=== PATIENT | female | born 1955 | race Caucasian/White ===

== ENCOUNTER → 2016-09-21 | Day surgery (SDC) | payer BC ==
[~2016-09-21] MED LIST: ALLEGRA-D1 TAB 60/1 PO; ATORVASTATIN CA10 MG PO; CALCIUM500 MG PO; MULTI-DAY VITAM1 TAB PO; PREMPRO1 TAB DOB; SYNTHROID125 PO
--- NOTE | ~2016-09-21 | OR ---
Unit #: [id number] #: [id number] Patient: NIEVES GAITAN [id number] [address] [place], [place] [address] [id number] O MR#: [id number] NAME: NIEVES GAITAN ROOM: Date of Procedure: 09/21/2016 Admission Date: 09/21/2016 Surgeon: Albaro Gonzalez M.D. : 1955 Attending Physician: Albaro Gonzalez M.D. Primary Care Physician: Emmanuel Curtis Jr., M.D. OPERATIVE REPORT PRIMARY CARE PHYSICIAN Emmanuel Curtis M.D. PREOPERATIVE DIAGNOSIS Colorectal cancer screening in an average-risk patient. PROCEDURE PERFORMED Colonoscopy up to cecum with excellent preparation and good visualization. POSTOPERATIVE DIAGNOSES Completely normal examination up to cecum and terminal ileum. The quality of the prep was excellent. RECOMMENDATIONS Repeat colonoscopy in 10 years. SEDATION USED MAC. DESCRIPTION OF PROCEDURE Following detailed explanation of potential risks and complications of a colonoscopy, namely perforation, bleeding, and complication related to sedation, the patient was brought to GI lab and laid in the left lateral decubitus position. A digital rectal examination was performed, which was normal. Lubricated tip of the Olympus video colonoscope was inserted through the anus and advanced under direct vision. The scope was advanced past rectosigmoid into descending colon. No diverticula were seen in this area. The scope tip was then navigated all the way up to cecum with visualization of the ileocecal valve and the appendiceal orifice. Preparation was excellent with good visualization and photodocumentation was obtained. Last several inches of the terminal ileum were also visualized after intubation of the ileocecal valve and appeared normal. Successive segments of the colonic mucosa were examined upon withdrawal and appeared unremarkable. There being no polyps, mass lesions, AVMs, or diverticula. The patient did not have any hemorrhoids at the anal verge. The scope was then withdrawn and the patient returned to recovery area. She tolerated the procedure without any postprocedure complications. Dictated by... Albaro Gonzalez M.D. Unit #: [id number] #: [id number] Patient: NIEVES GAITAN JAMIL/trudi TD: 09/22/2016 01:26 JOB #: [id number] OPERATIVE REPORT Page 1 of 1 X Albaro Gonzalez MD PROCEDURE OPERATIVE NOTE
== END | disposition home or self-care (01) ==
LOC: COPS 07:33
DX: Z12.11 Encounter for screening for malignant neoplasm of colon (principal); K21.9 Gastro-esophageal reflux disease without esophagitis; E03.9 Hypothyroidism, unspecified; J30.2 Other seasonal allergic rhinitis; Z90.710 Acquired absence of both cervix and uterus; Z88.0 Allergy status to penicillin; Z88.5 Allergy status to narcotic agent